=== PATIENT | female | born 1970 | race African-American/Black ===

== ENCOUNTER 2017-06-08 08:00 | Emergency (ER) | payer OTHER ==
[~2017-06-08] VITALS: Ht 167.6 cm; Wt 79.4 kg
[2017-06-08 08:05] VITALS: BP 147/86
--- NOTE | 2017-06-08 08:16 | PHYS DOC ---
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 Her feet slipped out from under her and she landed on her bottom. She said when she first got up, she didn't think she was hurt. Within about 5 or 10 minutes, she did start to develop some pain in her low back, which has worsened since it started. She was able to get up quickly with the assistance of a coworker and ambulated immediately. She denies any pain or injury to her wrists, elbows, shoulders, or elsewhere. No head injury. She does not have chronic back pain. She has not taken anything for the pain. She came here from work. History of hypertension, takes lisinopril and daily aspirin on the advice of her doctor. She has never had a bleeding ulcer or any problem with NSAIDs. Review of Systems Review of Systems Musculoskeletal: Any musculoskeletal pain other than back pain Allergies Allergies Allergies Coded Allergies Type Severity Reaction Last Updated Verified No Known Drug Allergies 06/08/15 No Physical Exam Physical Exam Constitutional: Well developed, well nourished, no acute distress, non-toxic appearance. Ambulated into ED after driving herself here. HENT: Normocephalic, atraumatic, bilateral external ears normal, nose normal. [ ] Eyes: conjunctiva normal, no discharge. [] Neck: Normal range of motion, no stridor. [] Skin: Warm, dry, no erythema, no rash. [] Back: No midline tenderness of the lumbosacral spine. There is mild tenderness to palpation on the right lateral lower back. No bony tenderness of the posterior pelvis. No skin abnormality noted in this area. Extremities: No tenderness, no cyanosis, no clubbing, ROM intact, no edema. DTRs 2 over 4 in both knees and equal. Neurologic: Alert and oriented X 3, normal motor function, no focal deficits noted. [] EKG EKG [] Radiology/Procedures Radiology/Procedures [] Course & Med Decision Making Course & Med Decision Making Pertinent Labs and Imaging studies reviewed. (See chart for details) 47-year-old female slipped and fell on a daily surface, landed on her bottom. She did not have pain right away, the pain developed over the course of a few minutes. She does not have any midline tenderness. For these reasons, x-rays were not done. 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 She is scheduled to be off tomorrow and return on 06/10. She was given a note to be off work today. Ibuprofen for pain, see instructions for plan. [] Dragon Disclaimer Dragon Disclaimer This electronic medical record was generated, in whole or in part, using a voice recognition dictation system. Departure Departure: Impression: Primary Impression: Contusion, back Additional Impression: Fall from slipping on snow Disposition: HOME, SELF-CARE Condition: STABLE Referrals: PCP,MINERVA (PCP) Patient Instructions: Contusion, [id number] Additional Instructions: Ice 15-20 minutes out of every 1-2 hours Ibuprofen 800 mg every 8 hours for pain, after 2-3 days you can decrease to 600 or 400 mg every 8 hours (use OTC 200 mg pills for these doses) It will hurt worse in the morning and should improve over 3-5 days Scripts Ibuprofen (IBUPROFEN) 800 Mg Tablet 1 TAB PO TID for back pain, #30 TAB Prov: MARCUS POP MD 06/08/17 Problem Qualifiers MARCUS POP MD Jun 08, 2017 08:16
[2017-06-08] MEDS ORDERED: IBUP800T19 PO (08:17)
[2017-06-08] MEDS ORDERED: IBUPROFEN 800 MG TABLET. PO ONE ×2 (08:21→08:30)
== END 2017-06-08 08:27 | disposition home or self-care (01) ==
LOC: ER 08:09
DX: S30.0XXA Contusion of lower back and pelvis, initial encounter (principal); I10 Essential (primary) hypertension; W00.0XXA Fall on same level due to ice and snow, initial encounter; Y93.89 Activity, other specified; Y99.0 Civilian activity done for income or pay; Y92.89 Other specified places as the place of occurrence of the external cause
CPT/HCPCS: 99282

== ENCOUNTER → 2017-06-13 | Outpatient (CLI) | payer OTHER ==
[2017-06-08 08:05] VITALS: BP 147/86
[~2017-06-13] MED LIST: IBUP800T19 PO
--- NOTE | 2017-06-13 17:03 | RAD ---
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 The lumbar vertebral heights are well-maintained. The intervertebral disc spaces are well preserved. There are minimal marginal spurs. The paraspinous soft tissues are unremarkable. IMPRESSION: 1. Minimal degenerative change. 2. No acute abnormality is detected.
== END | disposition home or self-care (01) ==
LOC: RAD 16:40
DX: M47.896 Other spondylosis, lumbar region (principal)
CPT/HCPCS: 72100